=== PATIENT | female | born 1985 | race Hispanic/Latino ===

== ENCOUNTER 2016-08-15 18:54 | Emergency (ER) | payer SELFPAY ==
[2016-08-15 19:06] VITALS: BP 126/74; PULSE 68; RESP 18; TEMP 98.2; O2SAT 100
[2016-08-15] MEDS ORDERED: Sodium Chloride 0.9% 1,000 ML IV STA (19:13)
--- NOTE | 2016-08-15 19:31 | ED PDOC ---
HPI:Nausea, Vomiting, Diarrhea Time Seen by Provider: 08/15/16 19:09 Chief Complaint (Nursing): GI Problem Chief Complaint (Provider): Nausea/Vomiting History Per: Patient History/Exam Limitations: no limitations Onset/Duration Of Symptoms: Days (ongoing for 6 hours), Sudden Onset Current Symptoms Are (Timing): Still Present Have you had recent travel within the past 21 days to any of the following countries: [place], [place], [place] or [place]?: No Context: Food (heavy meal for breakfast at [employer], inclusive of steak, eggs, and pancakes) Severity: Moderate Pain Scale Rating Of: 6 Quality Of Discomfort: Cramping Associated Symptoms: Nausea, Vomiting (6 episodes, non-bloody, non-bilious), Other (epigastric abdominal pain; denies a cough or dyspnea). denies: Fever, Back Pain, Chest Pain, Urinary Symptoms Additional Complaint(s): Kayla Mcguire is a 30 year old female, with no pertinent past medical history, who presents to the emergency department for an acute onset of nausea and 6 episodes of non-bloody, non-bilious vomiting vomiting, inclusive of epigastric abdominal pain, ongoing for 6 hours. Pain is described as cramping and rated as a 6/10 in severity. Patient reports that she ate a heavy meal for breakfast at [employer], inclusive of steak, eggs, and pancakes. Denies a fever, cough, chest pain, dyspnea, back pain, or urinary symptoms. PMD: none specified Past Medical History Reviewed: Historical Data, Nursing Documentation, Vital Signs Vital Signs: Last Vital Signs Temp 98.2 F 08/15/16 19:03 Pulse 68 08/15/16 19:03 Resp 18 08/15/16 19:03 BP 126/74 08/15/16 19:03 Pulse Ox 100 08/15/16 19:03 - Medical History PMH: No Chronic Diseases - Surgical History Surgical History: Cholecystectomy - Family History Family History: States: No Known Family Hx - Social History Current smoker - smoking cessation education provided: No Ex-Smoker (has not smoked in the last 12 months): No Alcohol: None Drugs: Denies - Home Medications Home Medications: Ambulatory Orders Medication Instructions Recorded Diphenhydramine Hydrochlorid 25 mg PO Q8 #20 cap 06/13/14 [Benadryl] Pramoxine HCl/Zinc Acetate 120 ml TP DAILY #1 lot 06/13/14 [Caladryl Clear 1%-0.1% 177 ml] metroNIDAZOLE 0.75% [Metrogel 45 gm EXT DAILY #1 tube 06/13/14 Cream] Nitrofurantoin Macrocrystals 100 mg PO BID #14 cap 09/22/15 [Macrobid] Dicyclomine [Bentyl] 20 mg PO Q12 PRN #20 tab 01/18/16 Ondansetron ODT [Zofran ODT] 4 mg PO Q6 PRN #16 odt 01/18/16 Famotidine [Pepcid] 20 mg PO Q12 #14 tab 08/15/16 Ondansetron ODT [Zofran ODT] 4 mg PO Q6 PRN #16 odt 08/15/16 - Allergies Allergies/Adverse Reactions: Allergies Allergy/AdvReac Type Severity Reaction Status Date / Time No Known Allergies Allergy Verified 08/15/16 20:34 Review of Systems ROS Statement: Except As Marked, All Systems Reviewed And Found Negative Constitutional: Negative for: Fever Cardiovascular: Negative for: Chest Pain Respiratory: Negative for: Cough, Shortness of Breath Gastrointestinal: Positive for: Nausea, Vomiting (6 episodes, non-bloody, non- bilious), Abdominal Pain (epigastric, "cramping") Genitourinary Female: Negative for: Dysuria, Hematuria Musculoskeletal: Negative for: Back Pain Physical Exam - Reviewed Nursing Documentation Reviewed: Yes Vital Signs Reviewed: Yes - Physical Exam Appears: Positive for: Non-toxic, No Acute Distress, Uncomfortable Head Exam: Positive for: ATRAUMATIC, NORMOCEPHALIC Skin: Positive for: Normal Color, Warm, Dry Cardiovascular/Chest: Positive for: Regular Rate, Rhythm. Negative for: Murmur Respiratory: Positive for: Normal Breath Sounds. Negative for: Respiratory Distress Gastrointestinal/Abdominal: Positive for: Normal Exam, Soft, Tenderness (mild, epigastric). Negative for: Guarding, Rebound Back: Positive for: Normal Inspection. Negative for: L CVA Tenderness, R CVA Tenderness Neurologic/Psych: Positive for: Alert, Oriented - Laboratory Results Result Diagrams: 08/15/16 20:47 08/15/16 20:47 - ECG O2 Sat by Pulse Oximetry: 100 (RA) Pulse Ox Interpretation: Normal Medical Decision Making Medical Decision Makin:09 Initial Impression: 30 year old female presenting to the emergency department with nausea, vomiting, and epigastric abdominal pain. Initial Plan: * Complete Blood Count * Comprehensive Metabolic Panel * Lipase * Urine Dip * Urine * Urinalysis * Sodium Chloride 0.9% 1,000 ml IV at 1,000 mls/hr * Pepcid 20 mg IV * Zofran 4 mg IV * Reevaluation 21:00 Labs reviewed showing no significant abnormalities. 22:00 Upon provider reevaluation, patient reports improvement in pain and nausea, is medically stable, and requires no further treatment in the emergency department at this time. Patient will be discharged home with a prescription for Pepcid and Zofran ODT. Counseling was provided and all questions were answered regarding diagnosis and need for follow up with [facility]. Patient is in agreement with provider's discharge plan and was prompted to return if their symptoms persist or worsen. Clinical Impression: Gastritis Scribe Attestation: Documented by David Nuñez, acting as a scribe for Eligio Manriquez MD. Provider Scribe Attestation: All medical record entries made by the Scribe were at my direction and personally dictated by me. I have reviewed the chart and agree that the record accurately reflects my personal performance of the history, physical exam, medical decision making, and the department course for this patient. I have also personally directed, reviewed, and agree with the discharge instructions and disposition. Disposition - Clinical Impression Clinical Impression: Gastritis - Disposition Referrals: [facility] [Outside] Disposition: Routine/Home Disposition Time: 22:00 Condition: STABLE Prescriptions: Famotidine [Pepcid] 20 mg PO Q12 #14 tab Ondansetron ODT [Zofran ODT] 4 mg PO Q6 PRN #16 odt PRN Reason: Nausea/Vomiting Instructions: Gastritis (ED) Print Language: [id number]
[2016-08-15 19:46] LABS: RBC URINE 2 /hpf (0-3); URINE BILIRUBIN NEGATIVE (NEGATIVE); URINE BLOOD SMALL (NEGATIVE); URINE COLOR YELLOW (YELLOW); URINE GLUCOSE (UA) NEG (Normal); URINE KETONE TRACE mg/dL (NEGATIVE); URINE LEUKOCYTE ESTERASE NEG Leu/uL (Negative); URINE PROTEIN NEGATIVE (NEGATIVE); URINE UROBILINOGEN 0.2-1.0 mg/dL (0.2-1.0)
[2016-08-15 20:58] LABS: BASO # 0.1 K/uL (0.0-0.2); BASO % 0.9 % (0.0-2.0); EOS % 0.3 % (0.0-4.0); HEMATOCRIT 39.9 % (34.0-47.0); LYMPH # 2.7 K/uL (1.0-4.3); LYMPH % 28.4 % (20.0-40.0); MEAN CELL VOLUME 85.8 fl (81.0-99.0); MEAN CORPUSCULAR HEMOGLOBIN 27.9 pg (27.0-31.0); MEAN CORPUSCULAR HGB CONC 32.5 g/dL (33.0-37.0); MEAN PLATELET VOLUME 8.9 fl (7.2-11.7); MONO # 0.7 K/uL (0.0-0.8); MONO % 7.3 % (0.0-10.0); NEUT % 63.1 % (50.0-75.0); NRBC % 0.1 % (0.0-0.0); RED CELL DISTRIBUTION WIDTH 13.2 % (11.5-14.5); WHITE BLOOD COUNT 9.4 K/uL (4.8-10.8)
[2016-08-15 21:27] LABS: ALB/GLOB RATIO 1.3 (1.0-2.1); ALKALINE PHOSPHATASE 78 U/L (38-126); ALT/SGPT 25 U/L (9-52); AST/SGOT 36 U/L (14-36); BILIRUBIN,TOTAL 1.4 mg/dl (0.2-1.3); BLOOD UREA NITROGEN 7 mg/dl (7-17); CALCIUM 9.1 mg/dL (8.4-10.2); CARBON DIOXIDE 26 mmol/L (22-30); CHLORIDE 102 mmol/L (98-107); GFR AFRICAN-AMERICAN > 60; GLUCOSE,RANDOM 93 mg/dL (65-105); LIPASE 86 U/L (23-300); POTASSIUM 3.4 MMOL/L (3.6-5.0); SODIUM 138 mmol/l (132-148); TOTAL PROTEIN 8.2 G/DL (6.3-8.2)
== END 2016-08-15 22:04 | disposition home or self-care (01) ==
LOC: H.ER 18:54
DX: K29.70 Gastritis, unspecified, without bleeding (principal); R10.13 Epigastric pain; R11.2 Nausea with vomiting, unspecified; Z87.891 Personal history of nicotine dependence
CPT/HCPCS: 80053; 81003; 81025; 83690; 85025; 96360; 99283; J1885; J2405; J7040